=== PATIENT | female | born 1945 | race Asian ===

== ENCOUNTER 2017-05-11 16:28 | Inpatient (IN) | END 2017-05-24 22:03 | DRG 252 ==

== ENCOUNTER 2017-05-24 22:28 | Inpatient (IN) | END 2017-06-09 16:40 | disposition short-term general hospital (02) | DRG 945 ==

== ENCOUNTER 2017-06-09 17:04 | Inpatient (IN) | END 2017-07-09 22:31 | DRG 207 ==

== ENCOUNTER 2017-07-09 22:30 | Inpatient (IN) | END 2017-07-29 18:36 | disposition short-term general hospital (02) | DRG 637 ==

== ENCOUNTER 2017-07-29 18:48 | Inpatient (IN) | END 2017-11-12 16:52 | disposition EXP | DRG 441 ==